=== PATIENT | female | born 1975 | race African-American/Black ===

== ENCOUNTER 2023-07-26 09:28 | Day surgery (SDC) | payer MEDICAID ==
[2023-07-24 13:40] LABS: Basophils # (auto) 0.1 10 ^3/uL (0-0.2); Basophils % (auto) 1.3 % (0.0-2.0); Eosinophils # (auto) 0.2 10 ^3/uL (0-0.8); Eosinophils % (auto) 2.4 % (0.0-7.0); Hematocrit 39.6 % (36.0-46.0); Hemoglobin 13.1 g/dL (12.2-16.2); Lymphocytes # (auto) 3.1 10 ^3/uL (0.4-5.4); Lymphocytes % (auto) 43.1 % (10.0-50.0); Mean Corpuscular Hemoglobin 27.2 pg (28.0-32.0); Mean Corpuscular Hgb Conc. 33.1 g/dL (32.0-36.0); Mean Corpuscular Volume 82.3 fL (80.0-100.0); Monocytes # (auto) 0.4 10 ^3/uL (0-1.3); Monocytes % (auto) 6.1 % (0.0-12.0); Neutrophils # (auto) 3.3 10 ^3/uL (1.6-8.6); Neutrophils % (auto) 47.1 % (37.0-80.0); Red Blood Cells 4.82 10^6/uL (4.0-5.20); White Blood Cell 7.1 10^3/uL (4.4-10.8)
[2023-07-24 13:55] LABS: Partial Thromboplastin Time 26.6 SEC (24.5-34.5); Prothrombin Time 10.5 sec (9.3-11.8)
[2023-07-24 14:07] LABS: Alanine Aminotransferase 12 U/L (7-40); Alkaline Phosphatase 100 U/L (46-116); Anion Gap 9 (5-15); Aspartate Aminotransferase 15 U/L (13-40); Bilirubin, Total 0.8 mg/dL (0.2-1.0); Calcium 9.7 mg/dL (8.7-10.4); Carbon Dioxide 27 mmol/L (20-30); Chloride 101 mmol/L (98-107); Glucose 92 mg/dL (74-106); Sodium 137 mmol/L (136-145); Total Protein 8.1 g/dL (5.7-8.2)
[2023-07-24 14:10] LABS: BUN/Creatinine Ratio 6.4 (10.0-20.0); Blood Urea Nitrogen < 5 mg/dL (9-23)
[~2023-07-26] VITALS: Ht 165.1 cm; Wt 88.0 kg
[~2023-07-26 09:28] MED LIST: LOSA50TA46 PO; SEMA2INJ3 SC
[2023-07-26] MEDS ORDERED: diphenhdrAMINE HCL 50 MG/1 ML VL ONE (11:09)
[2023-07-26] MEDS ORDERED: LIDOCAINE VISCOUS 2% 15ML UD ONE (11:09)
[2023-07-26] MEDS ORDERED: SODIUM CHLORIDE LOCK 10 ML ONE (11:09)
[2023-07-26 11:16] VITALS: O2SAT 100
[2023-07-26] MEDS: fentaNYL CITRATE 100 MCG/2 ML VL ONE ×2 (11:18→11:21)
[2023-07-26] MEDS: MIDAZOLAM HCL 5 MG/ML-1ML VIAL ONE ×2 (11:18→11:21)
[2023-07-26 11:28] VITALS: TEMP 98.2
[2023-07-26 12:15] VITALS: BP 128/73; PULSE 82; RESP 17; O2SAT 97
== END 2023-07-26 12:50 | disposition home or self-care (01) ==
LOC: GI 09:28
PROVIDERS: ATTEND Internal Medicine Gastroenterology
DX: R10.9 Unspecified abdominal pain (principal); R14.0 Abdominal distension (gaseous); K29.80 Duodenitis without bleeding; R19.7 Diarrhea, unspecified; K59.00 Constipation, unspecified; K44.9 Diaphragmatic hernia without obstruction or gangrene; K20.90 Esophagitis, unspecified without bleeding
CPT/HCPCS: 36415; 43235; 80053; 82962; 84702; 85025; 85610; 85730; J1200; J2250; J3010; J7030